=== PATIENT | male | born 1955 | race Caucasian/White ===

== ENCOUNTER 2018-10-18 08:31 | Day surgery (SDC) | payer OTHER ==
[~2018-10-18] VITALS: Ht 172.7 cm; Wt 78.5 kg
[~2018-10-18 08:31] MED LIST: AUGMENTIN 875-11 TAB PO
[2018-10-18 08:55] LABS: HEMATOCRIT 46.3 % (42.0-54.0); MCH 30.7 pg (26.0-34.0); MCHC 34.6 g/dL (31.0-37.0); MCV 88.9 fL (80.0-100.0); MEAN PLATELET VOLUME 9.2 fL (7.4-10.4); RBC 5.21 10x6/uL (4.20-6.10); RDW 14.4 % (11.5-14.5); WBC 5.8 10x3/uL (4.8-10.8)
[2018-10-18 10:06] VITALS: BP 142/78; Ht 172.7 cm; Wt 78.5 kg
--- NOTE | 2018-10-18 12:25 | NUR ---
REC'D FROM [facility]. FAMILY AT BESIDE.
--- NOTE | 2018-10-18 12:53 | OP ---
PATIENT NAME: DAMIEN DONALDSON MEDICAL RECORD: [id number] :51 LOCATION:[facility] ADMISSION DATE: SURGEON: TIMOTHY ALLRED MD DATE OF OPERATION: 10/18/2018 SURGEON: Timothy Allred MD ANESTHESIA: TIVA by Joe Walden CRNA DIAGNOSES: Elevated PSA 8.3 on 08/15/2018, bladder outlet obstruction. PROCEDURE: Cystoscopy, transrectal ultrasound and prostate biopsy. FINDINGS: On cystoscopy, bilateral lateral lobe obstruction without any median lobe. Single ureteral orifices bilaterally with no bladder tumors. On transrectal ultrasound, he has an 81 gram prostate with no hypoechoic areas. SPECIMENS: Prostate biopsy cores. ESTIMATED BLOOD LOSS: Minimal. CLINICAL HISTORY: This is a 63-year-old male, who was referred for an elevated PSA of 8.3. He had a prostate biopsy 4 years ago in [place], which was benign. The PSA then was about 7. He does have some voiding symptoms including urge incontinence, slow urinary flow. He has an IPSS score of 22 and quality of life score of 5. The prostate is enlarged on digital rectal examination. HE IS ALLERGIC TO CASHEWS AND CODEINE. He was given Ancef program consultant to the OR. He comes today for cystoscopy and transrectal ultrasound with prostate biopsy. DESCRIPTION OF PROCEDURE: The patient was given IV sedation. He was then placed into lithotomy position and prepped and draped. A 21-Sinhala cystoscope with 30-degree lens was used for visualization. He has obstructive lateral lobes of the prostate. No other significant findings were noted. The bladder was then emptied through the cystoscope sheath and the scope was removed. The transrectal ultrasound probe was then introduced. Prostate size measurements were obtained. The prostate is large at 81 grams in estimated size. Sextant biopsies were obtained with at least 3 cores from each sextant. Once all the specimens were obtained, then the procedure was terminated. I will see the patient in followup next week to review the pathology results with him. If the pathology is benign, then he would be a candidate for the UroLift procedure. TRANSINT:[id number] Voice Confirmation ID: [id number] DOCUMENT ID: [id number] TIMOTHY ALLRED MD at 1258 CC: [id number] DICTATION DATE: 10/18/18 1221 HOME HOSPICE AIDE: 10/18/18 1230 REG [facility] [address] [id number]
--- NOTE | 2018-10-18 13:25 | NUR ---
TOLERATED FL TRAY. AMBULATED TO BATHROOM AND VOIDED WITHOUT DIFFICULTY.
--- NOTE | 2018-10-18 13:55 | NUR ---
IV DC'D WITH CAHTETER INTACT. WRITTEN AND VERBAL DC INST. GIVEN TO PT. VERBALIZED UNDERSTANDING.
--- NOTE | 2018-10-18 14:05 | NUR ---
DC'D HOME WITH FAMILY VIA PRIVATE VEHICLE. STABLE AT TIME OF DC.
== END 2018-10-18 14:05 | disposition home or self-care (01) ==
LOC: D.OPS 08:31 → D.PAN 11:30 → D.OPS 11:30
PROVIDERS: Anesthesiology; ATTEND Urology
DX: N32.0 Bladder-neck obstruction (principal); N41.1 Chronic prostatitis; Z01.812 Encounter for preprocedural laboratory examination

== ENCOUNTER 2018-11-15 08:46 | Day surgery (SDC) | payer OTHER ==
[2018-11-13 11:01] LABS: APTT 29.9 SECONDS (22.8-39.4); CALC OSMOLALITY 280 mosm/kg (275-300); CALCIUM 9.1 mg/dL (8.5-10.1); CARBON DIOXIDE 28.8 mmol/L (21.0-32.0); CHLORIDE - SERUM 104 mmol/L (98-107); CREATININE - SERUM 0.9 mg/dL (0.6-1.3); GLUCOSE 95 mg/dL (74-106); INR 1.04 (0.85-1.17); POTASSIUM - SERUM 4.3 mmol/L (3.5-5.1); PROTIME 13.1 SECONDS (11.6-15.0); SODIUM 138 mmol/L (136-145); UREA NITROGEN 27 mg/dL (7-18); eGFR NON AFRICAN AMERICAN 90 mL/min (90-120)
[2018-11-13 11:14] LABS: HEMATOCRIT 42.5 % (42.0-54.0); HEMOGLOBIN 14.3 g/dL (13.5-17.5); MCH 29.9 pg (26.0-34.0); MCHC 33.6 g/dL (31.0-37.0); MCV 88.9 fL (80.0-100.0); MEAN PLATELET VOLUME 9.7 fL (7.4-10.4); NEUTROPHILS 68.2 % (40-80); PLATELET COUNT 219 10x3/uL (130-400); RBC 4.78 10x6/uL (4.20-6.10); RDW 14.2 % (11.5-14.5); WBC 6.2 10x3/uL (4.8-10.8)
[~2018-11-15] VITALS: Ht 172.7 cm; Wt 74.8 kg
[~2018-11-15 08:46] MED LIST changes: +5-HTP; +ACTIVE MIND; +D3; +MELATONIN 3 MG1 TAB PO; +MULTI-DAY VITAM1 TAB; +PROBIOTIC 10; +RED YEAST RICE600 MG PO; +[UNRECOGNIZED DRUG - OTHER]
[2018-11-15 09:57] VITALS: BP 136/80; Ht 172.7 cm; Wt 74.8 kg
--- NOTE | 2018-11-15 16:40 | NUR ---
1520 SAUCEDO IRRIGATED WITH NS USING A 60CC SYINGE. IRRIGATED X4 WITH 60CC EACH TIME. SAME AMOUNT OF NS DRAINED FROM SAUCEDO EACH TIME. NO CLOTS OBTAINED DURING IRRIGATION. SAUCEDO IRRIGATED WITHOUT DIFFICULTY. PT DENIES ANY PAIN DURING IRRRIGATION. OUTPUT LESS BLOODY WITH EACH IRRIGATION. SAUCEDO CATHETER AND DRAINAGE SYSTEM NOT CONTAMINATED DURING PROCEDURE.
--- NOTE | 2018-11-15 16:45 | NUR ---
1530 IV DC'D. CATHETER TIP INTACT. NO BLEEDING AT SITE. BANDAID APPLIED.
== END 2018-11-15 15:56 | disposition home or self-care (01) ==
LOC: D.OPS 08:46
PROVIDERS: ATTEND Urology
DX: N40.1 Benign prostatic hyperplasia with lower urinary tract symptoms (principal); N13.8 Other obstructive and reflux uropathy

== ENCOUNTER → 2019-02-13 19:58 | Outpatient (CLI) | payer OTHER ==
[2018-11-15 09:57] VITALS: BMI 25.1
== END | disposition home or self-care (01) ==
LOC: D.LABREF 19:58
PROVIDERS: ATTEND Urology
DX: R31.9 Hematuria, unspecified (principal)

== ENCOUNTER → 2019-02-27 17:51 | Outpatient (CLI) | payer OTHER ==
[2018-11-15 09:57] VITALS: BMI 25.1
== END | disposition home or self-care (01) ==
LOC: D.LABREF 17:51
PROVIDERS: ATTEND Urology
DX: R31.9 Hematuria, unspecified (principal)

== ENCOUNTER → 2019-03-19 12:45 | Outpatient (CLI) | payer OTHER ==
[2018-11-15 09:57] VITALS: BMI 25.1
== END | disposition home or self-care (01) ==
LOC: D.LABREF 12:45
PROVIDERS: ATTEND Urology
DX: R31.9 Hematuria, unspecified (principal)